=== PATIENT | male | born 2005 | race Caucasian/White ===

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

== ENCOUNTER 2025-02-19 11:32 | Emergency (ER) | payer OTHER ==
[2025-02-19 11:35] VITALS: RESP 18
--- NOTE | 2025-02-19 12:22 | ED ---
General Adult HPI - General Chief complaint: Recheck/Abnormal Lab/Rx Stated complaint: Urogenital Time Seen by Provider: 02/19/25 11:36 Source: patient, RN notes reviewed Mode of arrival: ambulatory Limitations: no limitations - History of Present Illness Initial comments: 19-year-old male presents emergency department with chief complaint of right testicular lump. Patient is nonpainful he found it last night. Patient states is also some skin changes noted. Patient denies fevers or chills no dysuria no abdominal complaints - Related Data Previous Rx's Medication Instructions Recorded Famotidine [Pepcid] 20 mg PO BID #30 tablet 08/25/15 Metoclopramide HCl [Reglan] 5 mg PO Q6HR PRN #20 tablet 08/25/15 Ibuprofen [Motrin] 400 mg PO Q6HR PRN #20 tab 08/12/16 Clotrimazole/Betameth Cream 1 applic TOPICAL BID #45 gm 02/19/25 [Lotrisone] Allergies Allergy/AdvReac Type Severity Reaction Status Date / Time No Known Allergies Allergy Verified 02/19/25 11:35 Review of Systems ROS Statement: Those systems with pertinent positive or pertinent negative responses have been documented in the HPI. ROS Other: All systems not noted in ROS Statement are negative. Past Medical History Past Medical History: No Reported History History of Any Multi-Drug Resistant Organisms: None Reported Past Surgical History: No Surgical Hx Reported Past Psychological History: No Psychological Hx Reported Smoking Status: Never smoker Past Alcohol Use History: Occasional Past Drug Use History: None Reported General Exam Limitations: no limitations General appearance: alert, in no apparent distress Head exam: Present: atraumatic, normocephalic, normal inspection Eye exam: Present: normal appearance, PERRL, EOMI. Absent: scleral icterus, conjunctival injection, periorbital swelling Respiratory exam: Present: normal lung sounds bilaterally. Absent: respiratory distress, wheezes, rales, rhonchi, stridor Cardiovascular Exam: Present: regular rate, normal rhythm, normal heart sounds. Absent: systolic murmur, diastolic murmur, rubs, gallop, clicks GI/Abdominal exam: Present: soft, normal bowel sounds. Absent: distended, tenderness, guarding, rebound, rigid exam: Absent: normal inspection (Dry skin mild erythema noted), testicular tenderness, scrotal swelling Course Vital Signs 02/19/25 11:33 Temperature 98.1 F Pulse Rate 87 Respiratory 18 Rate Blood Pressure 162/83 O2 Sat by Pulse 98 Oximetry Medical Decision Making - Medical Decision Making Was pt. sent in by a medical professional or institution ([facility], [facility], urgent care, hospital, or usp...) When possible be specific @ -No Did you speak to anyone other than the patient for history (EMS, parent, family, police, friend...)? What history was obtained from this source @ -No Did you review nursing and triage notes (agree or disagree)? Why? @ -I reviewed and agree with nursing and triage notes Were old charts reviewed (outside hosp., previous admission, EMS record, old EKG, old radiological studies, urgent care reports/EKG's, usp records)? Report findings @ -No old charts were reviewed Differential Diagnosis (chest pain, altered mental status, abdominal pain women, abdominal pain men, vaginal bleeding, weakness, fever, dyspnea, syncope, headache, dizziness, GI bleed, back pain, seizure, CVA, palpatations, mental health, musculoskeletal)? @ -Scrotal mass, testicular cancer, hydrocele, dermatitis, varicocele, skin rash EKG interpreted by me (3pts min.). @ -[None X-rays interpreted by me (1pt min.). @ -None done CT interpreted by me (1pt min.). @ -None done U/S interpreted by me (1pt. min.). @ -Ultrasound scrotum negative for acute process. There is some skin thickening noted. What testing was considered but not performed or refused? (CT, X-rays, U/S, labs)? Why? @ -None What meds were considered but not given or refused? Why? @ -None Did you discuss the management of the patient with other professionals (professionals i.e. [facility], [facility], lab, RT, psych nurse, social media analyst, foxing painter, teacher, inspectors and regulatory officers, home health care case manager)? Give summary @ -No Was smoking cessation discussed for >3mins.? @ -No Was critical care preformed (if so, how long)? @ -No Were there social determinants of health that impacted care today? How? (Homelessness, low income, unemployed, alcoholism, drug addiction, transportation, low edu. Level, literacy, decrease access to med. care, fdc, rehab)? @ -No Was there de-escalation of care discussed even if they declined (Discuss DNR or withdrawal of care, Hospice)? DNR status @ -No What co-morbidities impacted this encounter? (DM, HTN, Smoking, COPD, CAD, Cancer, CVA, ARF, Chemo, Hep., AIDS, mental health diagnosis, sleep apnea, morbid obesity)? @ -None Was patient admitted / discharged? Hospital course, mention meds given and route, prescriptions, significant lab abnormalities, going to OR and other pertinent info. @ -[Discharge patient's ultrasound is negative other than some skin changes noted on physical exam. Patient may have benign fungal infection. Patient was given topical cream and follow-up with urology, dermatology. Undiagnosed new problem with uncertain prognosis? @ -No Drug Therapy requiring intensive monitoring for toxicity (Heparin, Nitro, Insulin, Cardizem)? @ -No Were any procedures done? @ -No Diagnosis/symptom? @ -Tinea Acute, or Chronic, or Acute on Chronic? @ -Acute Uncomplicated (without systemic symptoms) or Complicated (systemic symptoms)? @ -Uncomplicated Side effects of treatment? @ -No Exacerbation, Progression, or Severe Exacerbation? @ -No Poses a threat to life or bodily function? How? (Chest pain, [place], [place], pneumonia, PE, COPD, DKA, ARF, appy, cholecystitis, CVA, Diverticulitis, Homicidal, Maynard icidal, threat to staff... and all critical care pts) @ -No Disposition Clinical Impression: Tinea corporis Disposition: HOME SELF-CARE Condition: Stable Instructions (If sedation given, give patient instructions): Tinea Corporis (ED) Additional Instructions: Please return to the Emergency Department if symptoms worsen or any other concerns. Prescriptions: Clotrimazole/Betameth Cream [Lotrisone] 1 applic TOPICAL BID #45 gm Is patient prescribed a controlled substance at d/c from ED?: No Referrals: None,Stated [Primary Care Provider] - 1-2 days Time of Disposition: 13:08
--- NOTE | 2025-02-19 12:50 | US ---
EXAMINATION TYPE: US scrotum with doppler. DATE OF EXAM: 02/19/2025 COMPARISON: NONE CLINICAL INDICATION: Male, 19 years old with history of lump; pt has been feeling "lump" on scrotum, dryness/redness around area TECHNIQUE: Grayscale, color Doppler and spectral Doppler imaging of the scrotum. FINDINGS: EXAM MEASUREMENTS: TESTICLES: Right Testicle: 4.3x2.3x3.8 cm Left Testicle: 5.0x2.2x3.0 cm EPIDIDYMIS HEAD: Right Epididymis: 0.8x0.9x0.7 cm Left Epididymis: 0.7x1.2x0.6 cm with a tiny 2 mm cyst Doppler performed to assess for testicular vascularity; good bilateral color flow and spectral wavefo alize are seen. There is no evidence of testicular torsion. Presence of hydroceles: yes Presence of varicoceles: no Trench Digging Machine Operator notes: Area of redness scanned: No obvious abnormalities seen Provided images show a possible vague hypoechoic area within the scrotal skin measuring 9 mm. IMPRESSION: 1. No sonographic evidence for testicular torsion or epididymoorchitis. 2. Small bilateral hydroceles. 3. Targeted scanning at the area of patient's scrotal lump shows no testicular mass. There may be a v ague 9 mm area of thickening of the scrotal skin which can be followed clinically. [facility], , 02/19/2025 12:48 PM
[2025-02-19 13:23] VITALS: BP 156/80; PULSE 82; TEMP 98
== END 2025-02-19 13:23 | disposition home or self-care (01) ==
LOC: EC 11:32
DX: B35.4 Tinea corporis (principal)
CPT/HCPCS: 76870; 93975; 99283